=== PATIENT | female | born 2000 | race Caucasian/White ===

== ENCOUNTER 2024-04-27 15:22 | Emergency (ER) | payer BC, OTHER ==
[~2024-04-27] VITALS: Ht 170.2 cm; Wt 56.1 kg
[~2024-04-27 15:22] MED LIST: ACETAMINOPHEN500 MG PO; AMOXICILLIN500 MG PO; BUPROPION XL150 MG PO; BUPROPION XL300 MG PO; ESCITALOPRAM OX20 MG PO; FAMOTIDINE40 MG PO; IBUPROFEN600 MG PO; MAGNESIUM250 M2 PO; NASONEX17 GM NS; ONDANSETRON ODT4 MG PO; OXYCODON-ACETA1 EAC2 PO; PSEUDOEPHEDRINE60 MG PO; STOOL SOFTENER100 MG PO; VITAMIN D350 MC3 PO
[2024-04-27] MEDS ORDERED: ondansetron HCL 4 MG/2 ML VIAL IV ONE ×2 (15:45→16:15)
[2024-04-27 15:59] LABS: BASOPHILS 0.2 % (0-2); HEMATOCRIT 47.6 % (35.0-50.0); HEMOGLOBIN 16.4 g/dL (12.0-18.0); LYMPHOCYTES 6.6 % (24-44); MCHC 34.5 g/dl (30-36); MONOCYTES 4.7 % (0-12); NEUTROPHILS 88.5 % (39-80); PLATELET COUNT 499 K/uL (140-440); RBC 5.29 M/ul (4.3-5.7); RDW 12.5 (10.5-15.0)
[2024-04-27 16:10] LABS: ALBUMIN 4.9 g/dL (3.4-5.0); ALBUMIN/GLOBULIN RATIO 1.14 (1.1-2.4); ANION GAP 16.6 (7-21); BILIRUBIN, TOTAL 1.5 ng/dL (0.2-1.0); BUN/CREATININE RATIO 15.09 (6.0-28.6); CALCIUM 9.9 mg/dL (8.5-10.1); CREATININE, SERUM 1.06 mg/dL (0.55-1.02); POTASSIUM 3.6 mmol/L (3.5-5.1); PROTEIN, TOTAL 9.2 g/dL (6.4-8.2)
[2024-04-27] MEDS ORDERED: SODIUM CHLORIDE 0.9% 1,000 ML IV ONE (16:15)
[2024-04-27] MEDS ORDERED: HYDROmorphone HCL 1 MG/ML SYR IV ONE (16:15)
[2024-04-27 16:23] LABS: BILIRUBIN, URINE POSITIVE (negative); BLOOD/HGB, URINE NEGATIVE (Negative); KETONE, URINE >=80 (Negative); LEUK ESTERASE, URINE NEGATIVE (negative); NITRITE, URINE NEGATIVE (negative)
[2024-04-27 16:29] LABS: CRYSTALS, URINE NONE SEEN (0-1+); RED BLOOD CELLS, URINE 0-1 /hpf (0-5)
[2024-04-27 16:29] LABS: INFLUENZA B NAA NEGATIVE (NEGATIVE); RESPIRATORY SYNCYTIAL VIR NAA NEGATIVE (NEGATIVE)
[2024-04-27 16:30] LABS: BACTERIA, URINE 1+ /hpf (negative); CASTS, URINE NONE SEEN \\lpf; COLLECTION TYPE, URINE CLEAN CATCH; REFLEX CULTURE, URINE No (No)
[2024-04-27] MEDS ORDERED: LOMOTIL TABLET1 EACH PO (19:02)
[2024-04-27] MEDS ORDERED: ONDANSETRON ODT8 MG SL (19:02)
[2024-04-27] MEDS ORDERED: PERCOCET 5-3251 EACH PO (19:02)
[2024-04-27 19:15] VITALS: BP 115/74
== END 2024-04-27 19:15 | disposition home or self-care (01) ==
LOC: ED 15:22
PROVIDERS: Emergency Medicine
DX: R10.9 Unspecified abdominal pain (principal); R19.7 Diarrhea, unspecified; R11.2 Nausea with vomiting, unspecified; Z79.899 Other long term (current) drug therapy
CPT/HCPCS: 36415; 74177; 80053; 81001; 83690; 84703; 85025; 87502; 96375; 99284-25; J1170; J2405; J7030; Q9967; U0002

== ENCOUNTER 2024-10-03 09:16 | Emergency (ER) | payer BC, OTHER ==
[~2024-10-03] VITALS: Ht 170.2 cm; Wt 56.7 kg
[~2024-10-03 09:16] MED LIST changes: +LOMOTIL TABLET1 EACH PO; +ONDANSETRON ODT8 MG SL; +PERCOCET 5-3251 EACH PO
[2024-10-03 09:43] LABS: BASOPHILS 0.1 % (0-2); HEMATOCRIT 42.3 % (35.0-50.0); HEMOGLOBIN 14.9 g/dL (12.0-18.0); LYMPHOCYTES 8.9 % (24-44); MCH 30.8 (27-36); MCHC 35.3 g/dl (30-36); MCV 87.3 fl (81-99); MONOCYTES 3.9 % (0-12); NEUTROPHILS 87.1 % (39-80); PLATELET COUNT 482 K/uL (140-440); RBC 4.84 M/ul (4.3-5.7); RDW 12.9 (10.5-15.0)
[2024-10-03 09:44] LABS: BILIRUBIN, URINE POSITIVE (negative); BLOOD/HGB, URINE NEGATIVE (Negative); KETONE, URINE >=80 (Negative); LEUK ESTERASE, URINE NEGATIVE (negative); NITRITE, URINE NEGATIVE (negative)
[2024-10-03] MEDS ORDERED: ondansetron HCL 4 MG/2 ML VIAL IV PRN (09:45)
[2024-10-03] MEDS ORDERED: SODIUM CHLORIDE 0.9% 1,000 ML IV ONE (09:45)
[2024-10-03 09:59] LABS: ALBUMIN 4.8 g/dL (3.4-5.0); ALBUMIN/GLOBULIN RATIO 1.17 (1.1-2.4); ANION GAP 18.2 (7-21); BILIRUBIN, TOTAL 1.3 mg/dL (0.2-1.0); BUN/CREATININE RATIO 14.28 (6.0-28.6); CALCIUM 9.6 mg/dL (8.5-10.1); CREATININE, SERUM 0.91 mg/dL (0.55-1.02); POTASSIUM 4.2 mmol/L (3.5-5.1); PROTEIN, TOTAL 8.9 g/dL (6.4-8.2)
[2024-10-03] MEDS ORDERED: HALOPERIDOL LACTATE 5 MG/ML VIAL IV ONE (10:45)
[2024-10-03] MEDS ORDERED: diphenhydrAMINE HCL 50 MG/ML VIAL IV ONE (10:45)
[2024-10-03 11:15] VITALS: BP 128/87
== END 2024-10-03 11:15 | disposition home or self-care (01) ==
LOC: ED 09:16
PROVIDERS: Emergency Medicine
DX: R11.15 Cyclical vomiting syndrome unrelated to migraine (principal); R10.9 Unspecified abdominal pain; F12.90 Cannabis use, unspecified, uncomplicated; Z79.899 Other long term (current) drug therapy
CPT/HCPCS: 36415; 74177; 80053; 81003; 83690; 84703; 85025; 96375; 99284-25; J1200; J1630; J2405; J7030; Q9967

== ENCOUNTER 2024-11-19 09:08 | Emergency (ER) | payer BC, OTHER ==
[~2024-11-19] VITALS: Ht 170.2 cm; Wt 58.8 kg
[2024-11-19] MEDS ORDERED: SODIUM CHLORIDE 0.9% 1,000 ML IV PRN (09:45)
[2024-11-19] MEDS ORDERED: ondansetron HCL 4 MG/2 ML VIAL IV ONE (09:45)
[2024-11-19] MEDS ORDERED: MORPHINE SULFATE 4 MG/ML VIAL IV ONE ×2 (09:45→11:00)
[2024-11-19 09:58] LABS: BILIRUBIN, URINE NEGATIVE (negative); BLOOD/HGB, URINE NEGATIVE (Negative); KETONE, URINE >=80 (Negative); LEUK ESTERASE, URINE NEGATIVE (negative); NITRITE, URINE NEGATIVE (negative)
[2024-11-19 09:59] LABS: BASOPHILS 0.4 % (0-2); EOSINOPHILS 0.2 % (0-6); HEMATOCRIT 39.5 % (35.0-50.0); HEMOGLOBIN 13.8 g/dL (12.0-18.0); LYMPHOCYTES 2.8 % (24-44); MCH 30.2 (27-36); MCHC 34.8 g/dl (30-36); MCV 86.8 fl (81-99); NEUTROPHILS 94.6 % (39-80); PLATELET COUNT 382 K/uL (140-440); RBC 4.55 M/ul (4.3-5.7); RDW 12.8 (10.5-15.0)
[2024-11-19 10:19] LABS: ALBUMIN 4.6 g/dL (3.4-5.0); ALBUMIN/GLOBULIN RATIO 1.24 (1.1-2.4); ANION GAP 19.8 (7-21); BILIRUBIN, TOTAL 0.8 mg/dL (0.2-1.0); BUN/CREATININE RATIO 7.07 (6.0-28.6); CALCIUM 9.2 mg/dL (8.5-10.1); CREATININE, SERUM 0.99 mg/dL (0.55-1.02); POTASSIUM 3.8 mmol/L (3.5-5.1); PROTEIN, TOTAL 8.3 g/dL (6.4-8.2)
[2024-11-19] MEDS ORDERED: PROMETHAZINE12.5 M1 PO (12:00)
[2024-11-19] MEDS ORDERED: PROMETHAZINE HCL 25 MG TAB PO ONE (12:00)
[2024-11-19 12:09] VITALS: BP 132/84
== END 2024-11-19 12:09 | disposition home or self-care (01) ==
LOC: ED 09:08
PROVIDERS: Emergency Medicine
DX: A08.4 Viral intestinal infection, unspecified (principal)
CPT/HCPCS: 36415; 74177; 80053; 81003; 83605; 83690; 84703; 85025; 85060; 96361; 96375; 96376; 99284-25; J2270; J2405; J7030; Q9967